=== PATIENT | male | born 1995 | race American Indian/Alaskan Native ===

== ENCOUNTER 2019-06-10 10:20 | Emergency (ER) | payer SELFPAY ==
[2019-06-10 10:30] VITALS: BP 137/75
--- NOTE | 2019-06-10 10:48 | Emergency Department Report ---
Chief Complaint: Urogenital-Male Stated Complaint: PENIS/DISCHARGE Time Seen by Provider: 06/10/19 10:45 - HPI History of Present Illness: Patient is a 23-year-old male who presents emergency room with complaints of penile discharge for 2 days. He denies any testicular pain or edema, abdominal pain, lesions, blisters, any other symptoms. States he has infection active and occasionally uses protection. Denies any past medical history or allergies medications. Vital signs are stable pt is presenting with a nonmedical emergency at this time he was given resources for the health department and a primary care clinic in order to receive a full STD panel and further treatment advised to return to the emergency room for any new or worsening symptoms MSE complete - Exam Vital Signs: Vital Signs 06/10/19 10:29 Temperature 98.3 F Pulse Rate 72 Respiratory 16 Rate Blood Pressure 137/75 O2 Sat by Pulse 97 Oximetry MSE screening note: Focused history performed ED Disposition for MSE Clinical Impression: Concern about STD in male without diagnosis Disposition: - MED SCREENING EXAM-LEFT Is pt being admited?: No Does the pt Need Aspirin: No Condition: Stable Instructions: Sexually Transmitted Diseases (ED), Safe Sex (ED) Additional Instructions: please be seen by the health department or primary care clinic for full STD panel. Return to the emergency room for any new or worsening symptoms. Referrals: [facility] [Outside] - 3-5 Days [facility] [Outside] - 3-5 Days [facility] [Provider Group] - 3-[address] [facility] [place] [Outside] - 3-5 Days Time of Disposition: 10:47 Print Language: NEPALESE
== END 2019-06-10 10:55 | disposition left against medical advice (07) ==
LOC: ED 10:20
DX: R36.9 Urethral discharge, unspecified (principal)